=== PATIENT | male | born 1980 | race Two or more races ===

== ENCOUNTER 2025-02-02 14:44 | Emergency (ER) | payer MEDICAID, SELFPAY ==
[2025-02-02 14:51] VITALS: BP 138/81; PULSE 81; RESP 18; TEMP 36.8; O2SAT 97; BMI 30.9
--- NOTE | 2025-02-02 14:53 | XR_ITS ---
EXAMINATION: XR ankle comp RT min 3V ORDERING PROVIDER: SARAN Adhikari HISTORY: trauma TECHNIQUE: 3 radiographs of the right ankle were obtained. COMPARISON: None. FINDINGS: BONES: No acute fracture or dislocation. ALIGNMENT: Normal. JOINTS: Normal. BONY MINERALIZATION: Normal. SOFT TISSUES: Mild lateral ankle soft tissue swelling. IMPRESSION: Soft tissue swelling without acute bony findings.
--- NOTE | 2025-02-02 14:54 | PD.EDFALL ---
ED Fall Injury RME/HPI General Chief Complaint: Fall Stated Complaint: FELL, INJURED R) ANKLE Time Seen by Provider: 02/02/25 14:49 Source: patient Arrival date/time: 02/02/25 14:44 44-year-old male with no known medical history presents to the emergency room with a chief complaint of pain and tenderness to his right ankle after a ground-level fall that occurred today Mode of arrival: ambulatory Limitations: no limitations Related Data Home Medications ?Medication ?Instructions ?Recorded ?Confirmed No Known Home Medications 10/17/18 10/17/18 Allergies Allergy/AdvReac Type Severity Reaction Status Date / Time No Known Allergies Allergy Verified 02/02/25 14:47 Review of Systems Review of Systems Systems Reviewed: All systems reviewed, normal except as documented Constitutional Constitutional: Reports system reviewed and no additional complaints, except as documented, Denies fatigue, Denies fever(s), Denies headache(s) and Denies weakness Eyes Eyes: Reports system reviewed and no additional complaints, except as documented, Denies blurry vision and Denies change in vision ENT Ears, Nose, Mouth, and Throat: Reports system reviewed and no additional complaints, except as documented, Denies otalgia, Denies headache(s), Denies nasal congestion, Denies throat swelling and Denies vertigo Cardiovascular Cardiovascular: Reports system reviewed and no additional complaints, except as documented, Denies chest pain, Denies dyspnea and Denies dyspnea on exertion Respiratory Respiratory: Reports system reviewed and no additional complaints, except as documented, Denies chest congestion, Denies cough, Denies dyspnea, Denies dyspnea on exertion and Denies wheezing Gastrointestinal Gastrointestinal: Reports system reviewed and no additional complaints, except as documented, Denies abdominal pain, Denies cramping, Denies nausea and Denies vomiting Genitourinary Genitourinary: Reports system reviewed and no additional complaints, except as documented, Denies dysuria and Denies hematuria Musculoskeletal Musculoskeletal: Reports system reviewed and no additional complaints, except as documented, Reports abnormal gait, Reports arthralgias, Denies back pain, Reports joint swelling and Reports limited range of motion Integumentary/Breasts Skin/Breast: Reports system reviewed and no additional complaints, except as documented and Denies wounds Neurologic Neurologic: Reports system reviewed and no additional complaints, except as documented, Reports abnormal gait, Denies confusion, Denies headache(s), Denies lack of coordination, Denies vertigo and Denies weakness Psychiatric Psychiatric: Reports system reviewed and no additional complaints, except as documented, Denies anxiety, Denies confusion, Denies depression, Denies paranoia, Denies suicidal ideation and Denies tactile hallucinations Endocrine Endocrine: Reports system reviewed and no additional complaints, except as documented and Denies fatigue Hematologic/Lymphatic Hematologic/Lymphatic: Reports system reviewed and no additional complaints, except as documented and Denies lymphadenopathy Allergic/Immunologic Allergic/Immunologic: Reports system reviewed and no additional complaints, except as documented, Denies throat swelling, Denies urticaria and Denies wheezing ED Exam General Limitations: Present no limitations General appearance: Present alert and in no apparent distress Head Head exam: Present atraumatic Eye Eye exam: Present normal appearance, PERRL and EOMI ENT ENT exam: Present normal exam, normal oropharynx and mucous membranes moist Neck Neck exam: Present normal inspection, full ROM and trachea midline Chest Chest inspection: Present normal inspection and symmetric chest wall rise Respiratory Respiratory exam: Present normal lung sounds bilaterally Cardiovascular Cardiovascular exam: Present regular rate, normal rhythm and normal heart sounds Abdominal Exam Abdominal exam: Present soft and normal bowel sounds Extremities Exam Extremities exam: Present normal inspection and full ROM Expanded Lower Extremity Exam Hip/Pelvis exam: Present normal inspection Upper leg exam: Present normal inspection Knee exam: Present normal inspection Lower leg exam: Present normal inspection Ankle exam: Present tenderness and swelling; Absent full ROM Foot/toe exam: Present normal inspection Gait: observed and limited by pain and unable to bear weight Back Exam Back exam: Present normal inspection and full ROM Neurological Exam Neurological exam: Present alert, oriented X3 and CN II-XII intact Psychiatric Psychiatric exam: Present normal affect and normal mood Skin Skin exam: Present warm, dry, intact and normal color Course Quality Measures none Orders Category Date Time Status craig wrap [Splint / Immobilizer] STAT Care 02/02/25 15:54 Active XR ankle comp RT min 3V Stat Exams 02/02/25 14:53 Completed Vital Signs Vital signs: Vital Signs Temperature 98.2 F 02/02/25 14:51 Pulse Rate 81 02/02/25 14:51 Respiratory Rate 18 02/02/25 14:51 Blood Pressure 138/81 H 02/02/25 14:51 Pulse Oximetry (%) 97 02/02/25 14:51 Oxygen Delivery Method Room Air 02/02/25 14:51 O2 saturation 97% within normal limits Fall MDM Narrative MDM Narrative:: 44-year-old male with no known medical history presents to the emergency room with a chief complaint of pain and tenderness to his right ankle after a ground-level fall that occurred today Patient is hemodynamically stable and in no apparent distress Physical examination shows tenderness and swelling to the right ankle. The patient states he is not unable to bear weight on the ankle. X-ray was completed and was negative for any acute fracture or dislocation. Craig wrap was placed for comfort and to help with his pain Patient was discharged and educated to follow-up with primary care provider in the next 24 to 48 hours and return to the emergency room for any evidence of worsening signs or symptoms Patient data External records reviewed:: [facility] previous records Clinical information provided by:: patient Social determinants that could affect healthcare access:: none Patient has the following chronic illnesses:: No chronic illness How is presenting disease/condition affected by chronic disease/condition?: no chronic disease Evaluation data The following diagnostics were reviewed and interpreted by me:: lab results and radiology exam(s) Lab and/or radiology exams considered but not ordered:: Labs and radiology exams considered and ordered Interpretation Summary: X-ray of the right ankle-no acute fracture Medications / Prescriptions Medications or Prescriptions considered but not ordered:: No medication given Medication administrations:: No medication given Consultations Consultation(s) initiated? (list below): No Diagnosis Fall Differential Diagnosis: other (Ankle fracture/ankle sprain) Most likely diagnosis given after review of the tests above:: Ankle sprain and strain Admission Indicated Admission indicated?: not indicated Admission Request Was there a request for admission?: No Disposition Plan Disposition Plan: Discharge Discharge Attestation Discharge Attestation: The patient and all family members were given an opportunity to ask questions and understood the discharge instructions. Discharge instructions specifically effects, indications for sooner follow up or return to the emergency department, and the expected course of current diagnosis. Patient condition: Stable Discharge Plan Plan Patient Disposition: HOME (Self Care) Disposition Comment: Stable Prescriptions/Referrals Prescriptions/Med Rec: No Action No Known Home Medications Referrals: Long Jenkins MD [Primary Care Provider] - In 1 week Problem List Clinical Impression: Ankle sprain and strain Patient/Caregiver Discharge Instructions Additional Instructions: Please follow-up with your primary care provider in the next 24 to 48 hours. X-ray of your ankle was completed and was negative for any acute fracture or dislocation. Please continue to ice rest and elevate the extremity. For any evidence of worsening signs or symptoms return to the emergency room immediately Print Language: French Stand Alone Forms: Berta Award Info., Work/School Release, Patient Portal Info Letter PA/MECHANICAL TEST ENGINEER Supervising Physician PA/MECHANICAL TEST ENGINEER Supervising Physician: Dr. ROBERTSON
== END 2025-02-02 16:52 | disposition home or self-care (01) ==
PROVIDERS: Emergency Provider Emergency Medicine; PCP Family Medicine
DX: S93.401A Sprain of unspecified ligament of right ankle, initial encounter (principal); W18.30XA Fall on same level, unspecified, initial encounter
CPT/HCPCS: 73610; 99283